=== PATIENT | male | born 1965 | race Caucasian/White ===

== ENCOUNTER 2022-05-19 12:00 | Emergency (ER) | payer SELFPAY ==
[~2022-05-19] VITALS: Ht 162.6 cm; Wt 87.1 kg
[2022-05-19 12:05] VITALS: BP 137/95
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
[2022-05-19] MEDS ORDERED: IBUPROFEN 600 MG TAB PO ONE (12:40)
[2022-05-19] MEDS ORDERED: LIDOCAINE MPF 1% 10 MG/ML VIAL INJ ONE (12:40)
--- NOTE | 2022-05-19 13:38 | NUR ---
NON ADHERENT X 1 APPLIED TO L ANTERIOR WRIST. FABRICATED L WRIST SPLINT APPLIED. + CMS
[2022-05-19] MEDS ORDERED: IBUP-2213 PO (13:39)
[2022-05-19] MEDS ORDERED: BACI1PAC6 TP (13:39)
--- NOTE | 2022-05-19 13:44 | NUR ---
Patient discharged with v/s stable. Written and verbal after care instructions ABOUT LACERATIO given and explained. Patient alert, oriented and verbalized understanding of instructions. Ambulatory with steady gait. All questions addressed prior to discharge. ID band removed. Patient advised to follow up with PMD. Rx of BACITRACIN OINTMENT, IBUPROFEN given. Patient educated on indication of medication including possible reaction and side effects. Opportunity to ask questions provided and answered.
== END 2022-05-19 13:44 | disposition home or self-care (01) ==
LOC: MED 12:00
DX: S61.512A Laceration without foreign body of left wrist, initial encounter (principal); E11.9 Type 2 diabetes mellitus without complications; Z79.4 Long term (current) use of insulin; Z79.899 Other long term (current) drug therapy; X58.XXXA Exposure to other specified factors, initial encounter; Y93.89 Activity, other specified; Y92.89 Other specified places as the place of occurrence of the external cause; Y99.8 Other external cause status
CPT/HCPCS: 12001; 90471; 90715; 99283; J2001